=== PATIENT | female | born 1975 | race Caucasian/White ===

== ENCOUNTER 2017-02-05 15:01 | Emergency (ER) | payer MEDICAID ==
[~2017-02-05] VITALS: Ht 162.6 cm; Wt 139.8 kg
[~2017-02-05 15:01] MED LIST: LEVO125T5 PO; LITH150C PO; LITH300T3 PO; MELO15TA24 PO; MONOCYCLINE PO; MULT-516 PO; NORE-73 PO; PRAZ1CAP2 PO; PRAZ2CAP2 PO
[2017-02-05] MEDS ORDERED: SODIUM CHLORIDE FLUSH 10ML SYR IVF ONE (15:30)
[2017-02-05 15:44] LABS: HEMATOCRIT 44.4 % (34.6-47.8); HEMOGLOBIN 14.7 g/dL (11.7-16.4); WHITE BLOOD COUNT 8.4 x10^3/uL (3.4-10)
[2017-02-05 15:56] LABS: BLOOD UREA NITROGEN 15 mg/dL (7-18)
[2017-02-05 16:00] LABS: ASPARTATE AMINO TRANSFERASE 10 U/L (15-37)
[2017-02-05] MEDS ORDERED: HYDROcodone/APAP 10/325 MG TABLET ONE (16:14)
[2017-02-05 16:29] LABS: PATH.CAST-FLAG NOT PRESENT; SPERM-FLAG NOT PRESENT; SRC-FLAG NOT PRESENT; XTAL-FLAG NOT PRESENT; YLC-FLAG NOT PRESENT
[2017-02-05] MEDS ORDERED: HYDROcodone/APAP 10/325 MG TABLET PO ONE (16:30)
[2017-02-05 18:10] VITALS: BP 131/87
== END 2017-02-05 18:12 | disposition home or self-care (01) ==
LOC: ED 18:06
DX: S23.3XXA Sprain of ligaments of thoracic spine, initial encounter (principal); S20.219A Contusion of unspecified front wall of thorax, initial encounter; N30.90 Cystitis, unspecified without hematuria; I10 Essential (primary) hypertension; E03.9 Hypothyroidism, unspecified; Z90.49 Acquired absence of other specified parts of digestive tract; X58.XXXA Exposure to other specified factors, initial encounter; Y93.89 Activity, other specified; Y92.89 Other specified places as the place of occurrence of the external cause; Y99.8 Other external cause status
CPT/HCPCS: 36415; 71020; 71250; 72072; 80053; 81001; 83690; 84703; 85025; 87086; 93005; 99285

== ENCOUNTER 2017-03-15 14:05 | Emergency (ER) | payer MEDICAID ==
[~2017-03-15] VITALS: Ht 162.6 cm; Wt 140.5 kg
[2017-03-15] MEDS ORDERED: SODIUM CHLORIDE 0.9% 1,000ML IVBOLUS ONE (14:30)
[2017-03-15] MEDS ORDERED: SODIUM CHLORIDE FLUSH 10ML SYR IVF ONE (14:30)
[2017-03-15 14:42] LABS: HEMATOCRIT 46.7 % (34.6-47.8); HEMOGLOBIN 15.5 g/dL (11.7-16.4); WHITE BLOOD COUNT 9.2 x10^3/uL (3.4-10)
[2017-03-15 14:55] LABS: BLOOD UREA NITROGEN 16 mg/dL (7-18)
[2017-03-15] MEDS ORDERED: METOCLOPRAMIDE 5 MG/ML, 2ML IVPush ONE ×2 (16:00→17:00)
[2017-03-15] MEDS ORDERED: DIPHENHYDRAMINE 50 MG/ML, 1ML IVPush ONE ×2 (16:00→17:00)
[2017-03-15] MEDS ORDERED: METOCLOPRAMIDE 5 MG/ML, 2ML ONE (16:56)
[2017-03-15] MEDS ORDERED: DIPHENHYDRAMINE 50 MG/ML, 1ML ONE (16:56)
[2017-03-15 18:18] VITALS: BP 141/80
[2017-03-18] MEDS ORDERED: MAGNESIUM SULFATE PMX 2GM/50ML 50 ML IV ONE (21:30)
[2017-03-18] MEDS ORDERED: DEXAMETHASONE 4 MG/ML, 1ML IVPush ONE (21:30)
== END 2017-03-15 18:20 | disposition home or self-care (01) ==
LOC: ED 17:44
DX: R51 Headache (principal); Z90.49 Acquired absence of other specified parts of digestive tract; I10 Essential (primary) hypertension; E03.9 Hypothyroidism, unspecified
CPT/HCPCS: 36415; 70450; 80048; 82040; 84439; 84443; 84703; 85025; 96361; 96374; 96375; 99285; J1200; J2765; J7030

== ENCOUNTER 2017-03-18 17:53 | Observation (INO) | payer MEDICAID ==
[~2017-03-18] VITALS: Ht 160 cm; Wt 140.7 kg
[2017-03-18] MEDS ORDERED: PROCHLORPERAZINE 5 MG/ML, 2ML IVPush ONE (19:00)
[2017-03-18] MEDS ORDERED: SODIUM CHLORIDE 0.9% 1,000ML IVBOLUS ONE (19:00)
[2017-03-18] MEDS ORDERED: SODIUM CHLORIDE FLUSH 10ML SYR IVF ONE (19:00)
[2017-03-18] MEDS ORDERED: DIPHENHYDRAMINE 50 MG/ML, 1ML IVPush ONE (19:00)
[2017-03-18] MEDS ORDERED: KETOROLAC 30 MG/1 ML IVPush ONE (19:00)
[2017-03-18 19:04] LABS: HEMATOCRIT 44.2 % (34.6-47.8); HEMOGLOBIN 14.6 g/dL (11.7-16.4); WHITE BLOOD COUNT 9.4 x10^3/uL (3.4-10)
[2017-03-18 19:14] LABS: ASPARTATE AMINO TRANSFERASE 12 U/L (15-37); BLOOD UREA NITROGEN 11 mg/dL (7-18)
[2017-03-18] MEDS ORDERED: PROCHLORPERAZINE 5 MG/ML, 2ML ONE (19:28)
[2017-03-18] MEDS ORDERED: KETOROLAC 30 MG/1 ML ONE (19:28)
[2017-03-18] MEDS ORDERED: DIPHENHYDRAMINE 50 MG/ML, 1ML ONE (19:28)
[2017-03-18 20:28] LABS: PATH.CAST-FLAG NOT PRESENT; SPERM-FLAG NOT PRESENT; SRC-FLAG NOT PRESENT; XTAL-FLAG NOT PRESENT; YLC-FLAG NOT PRESENT
[2017-03-18] MEDS ORDERED: MAGNESIUM SULFATE PMX 2GM/50ML 50 ML IV ONE (22:00)
[2017-03-18] MEDS ORDERED: DEXAMETHASONE 4 MG/ML, 1ML IVPush ONE (22:00)
[2017-03-18] MEDS ORDERED: CEFTRIAXONE PMX 1GM/50ML 50 ML ONE (22:05)
[2017-03-18] MEDS ORDERED: SUMATRIPTAN 6MG/0.5ML SQ ONE ×2 (22:05→22:30)
[2017-03-18] MEDS ORDERED: DEXAMETHASONE 4 MG/ML, 1ML ONE (22:05)
[2017-03-18] MEDS: CEFTRIAXONE PMX 1GM/50ML 50 ML IV SCH (22:14)
[2017-03-18] MEDS ORDERED: ONDANSETRON 2MG/ML, 2ML IVPush PRN (22:30)
[2017-03-18] MEDS ORDERED: LABETALOL 5MG/ML, 20ML IVPush PRN (22:30)
[2017-03-18] MEDS ORDERED: hydrALAzine 20 MG/ML, 1ML IV PRN (22:30)
[2017-03-18] MEDS ORDERED: DOCUSATE 100 MG CAPSULE PO PRN (22:30)
[2017-03-18] MEDS ORDERED: morphine SULFATE 10 MG/ML, 1ML IVPush PRN (22:30)
[2017-03-18] MEDS ORDERED: ENALAPRILAT 1.25 MG/ML, 2ML IV PRN (22:30)
[2017-03-18] MEDS ORDERED: PRAZOSIN 2 MG CAPSULE PO SCH (22:30)
[2017-03-18] MEDS ORDERED: PRAZOSIN 1 MG CAPSULE PO SCH (22:30)
[2017-03-18] MEDS ORDERED: POLYETHYLENE GLYCOL 17 GM PACKET PO PRN (22:30)
[2017-03-18 23:30] VITALS: BP 136/78
[2017-03-19] MEDS: PRAZOSIN 5 MG CAPSULE PO SCH ×2 (00:26→19:55)
[2017-03-19] MEDS: ENOXAPARIN 40 MG/0.4 ML SQ SCH ×2 (00:26→19:21)
[2017-03-19] MEDS: POTASSIUM CHLORIDE 20 MEQ in SODIUM CHLORIDE 0.9% 1,000 ML IV SCH ×2 (01:42→14:28)
[2017-03-19 02:00] VITALS: BP 117/77
[2017-03-19] MEDS ORDERED: MELATONIN 5 MG TABLET PO PRN (02:30)
[2017-03-19] MEDS: MELATONIN MC SCH ×2 (03:00→11:00)
[2017-03-19] MEDS: HYDROcodone/APAP 5/325 TABLET PO PRN ×4 (04:35→19:54)
[2017-03-19 06:03] LABS: BLOOD UREA NITROGEN 9 mg/dL (7-18)
[2017-03-19 07:43] VITALS: BP 127/85
[2017-03-19] MEDS: LEVOTHYROXINE 125 MCG TABLET PO SCH (08:00)
[2017-03-19] MEDS: NORETH A ET ESTRA HOMEMEDPO SCH (09:00)
[2017-03-19] MEDS: FE FUMARATE HOMEMEDPO SCH (09:00)
[2017-03-19] MEDS ORDERED: DIPHENHYDRAMINE 50 MG/ML, 1ML IVPush ONE (10:00)
[2017-03-19] MEDS ORDERED: METOCLOPRAMIDE 5 MG/ML, 2ML IVPush ONE (10:00)
[2017-03-19] MEDS: KETOROLAC 30 MG/1 ML IVPush PRN ×2 (10:44→18:17)
[2017-03-19 13:55] VITALS: BP 121/81
[2017-03-19 20:00] VITALS: BP 123/86
[2017-03-19] MEDS: CEFTRIAXONE PMX 1GM/50ML 50 ML IV SCH (21:48)
[2017-03-19] MEDS: MELATONIN 5 MG TABLET PO PRN (21:48)
[2017-03-20] MEDS: HYDROcodone/APAP 5/325 TABLET PO PRN ×4 (00:34→19:00)
[2017-03-20 02:00] VITALS: BP 97/62
[2017-03-20] MEDS: POTASSIUM CHLORIDE 20 MEQ in SODIUM CHLORIDE 0.9% 1,000 ML IV SCH (03:30)
[2017-03-20 05:45] VITALS: BP 103/68
[2017-03-20] MEDS: LEVOTHYROXINE 125 MCG TABLET PO SCH (05:47)
[2017-03-20] MEDS: FE FUMARATE HOMEMEDPO SCH (09:00)
[2017-03-20] MEDS: NORETH A ET ESTRA HOMEMEDPO SCH (09:00)
[2017-03-20 09:04] VITALS: BP 110/71
[2017-03-20] MEDS: ACETAMINOPHEN 325 MG TABLET PO PRN (09:22)
[2017-03-20] MEDS ORDERED: METHOCARBAMOL 1,000 MG in DEXTROSE 5% 100 ML IV ONE (10:00)
[2017-03-20] MEDS ORDERED: LIDOCAINE 1%, 20ML ONE (12:23)
[2017-03-20 13:58] VITALS: BP 121/80
[2017-03-20 14:07] VITALS: BP 106/72
[2017-03-20 14:26] LABS: GLUCOSE, CSF 57 mg/dL (40-80)
[2017-03-20 18:04] LABS: RHEUMATOID FACTOR SCREEN NEGATIVE (NEGATIVE)
[2017-03-20] MEDS ORDERED: GADOBUTROL 10 MMOL/10 ML VIAL ONE (18:16)
[2017-03-20 20:22] VITALS: BP 116/78
[2017-03-20] MEDS: PRAZOSIN 5 MG CAPSULE PO SCH (20:42)
[2017-03-20] MEDS: ENOXAPARIN 40 MG/0.4 ML SQ SCH (20:42)
[2017-03-20] MEDS: CEFTRIAXONE PMX 1GM/50ML 50 ML IV SCH (20:43)
[2017-03-21] MEDS: HYDROcodone/APAP 5/325 TABLET PO PRN ×3 (00:25→12:22)
[2017-03-21] MEDS: MELATONIN 5 MG TABLET PO PRN (00:28)
[2017-03-21 02:24] VITALS: BP 110/75
[2017-03-21] MEDS: LEVOTHYROXINE 125 MCG TABLET PO SCH (06:36)
[2017-03-21 06:57] VITALS: BP 113/71
[2017-03-21] MEDS ORDERED: BACLOFEN 10 MG TABLET PO SCH (09:00)
[2017-03-21] MEDS: FE FUMARATE HOMEMEDPO SCH (09:00)
[2017-03-21] MEDS: NORETH A ET ESTRA HOMEMEDPO SCH (09:00)
[2017-03-21] MEDS: ACETAMINOPHEN 325 MG TABLET PO PRN (09:27)
[2017-03-21] MEDS ORDERED: ACET500C PO (11:46)
[2017-03-21] MEDS ORDERED: SUMA50TA3 PO (11:46)
[2017-03-21 12:48] VITALS: BP 113/72
[2017-03-22 13:52] LABS: ANA SCREEN NEGATIVE (Negative)
== END 2017-03-21 13:44 | disposition home or self-care (01) ==
LOC: ED 19:05 → EDIP 21:53 → SUATTDRO 21:55 → EDIP 22:15 → UNDOADMOB 22:15 → INTOOBSV 22:15 → EDIP 23:28 → 4EST 23:28 → DCLOUNGE 03-21 13:30
PROVIDERS: ADMIT Family Medicine; ATTEND Family Medicine
DX: R51 Headache (principal); F32.9 Major depressive disorder, single episode, unspecified; E03.9 Hypothyroidism, unspecified; E66.01 Morbid (severe) obesity due to excess calories; H53.2 Diplopia; I10 Essential (primary) hypertension; N39.0 Urinary tract infection, site not specified; Z68.43 Body mass index [BMI] 50.0-59.9, adult; Z85.41 Personal history of malignant neoplasm of cervix uteri; Z82.49 Family history of ischemic heart disease and other diseases of the circulatory system; Z87.891 Personal history of nicotine dependence; Z90.710 Acquired absence of both cervix and uterus
CPT/HCPCS: 36415; 62270; 70543; 70545; 70551; 70553; 80048; 80053; 81001; 82945; 83735; 84157; 84439; 84443; 85025; 85651; 86038; 86140; 86430; 87086; 89051; 96361; 96365; 96366; 96367; 96372; 96375; 96376; 97162; 97166; 99285; A9585; G0378; J0696; J0780; J1100; J1200; J1650; J1885; J2405; J2765; J2800; J3030; J3475; J3480; J7030; J3490

== ENCOUNTER → 2017-04-05 | Outpatient (CLI) | payer MEDICAID ==
[~2017-04-05] MED LIST changes: +ACET500C PO; +SUMA50TA3 PO
== END | disposition home or self-care (01) ==
LOC: CFH 11:09
PROVIDERS: ATTEND Family Medicine
DX: Z12.31 Encounter for screening mammogram for malignant neoplasm of breast (principal)
CPT/HCPCS: G0202

== ENCOUNTER 2017-11-17 11:41 | Emergency (ER) | payer MEDICAID ==
[~2017-11-17] VITALS: Ht 160 cm; Wt 120.4 kg
[2017-11-17 11:50] VITALS: BP 141/84
[2017-11-17] MEDS ORDERED: MELO15TA24 PO (12:42)
[2017-11-17] MEDS ORDERED: MINO100T2 PO (12:42)
[2017-11-17] MEDS ORDERED: TRAZ-136 PO (12:42)
[2017-11-17] MEDS ORDERED: TOPI25TA32 PO (12:42)
== END 2017-11-17 13:25 | disposition home or self-care (01) ==
LOC: ED 13:10
DX: S70.01XA Contusion of right hip, initial encounter (principal); G89.11 Acute pain due to trauma; I10 Essential (primary) hypertension; E03.9 Hypothyroidism, unspecified; E66.9 Obesity, unspecified; Z87.891 Personal history of nicotine dependence; W01.0XXA Fall on same level from slipping, tripping and stumbling without subsequent striking against object, initial encounter; Y93.89 Activity, other specified; Y92.69 Other specified industrial and construction area as the place of occurrence of the external cause; Y99.8 Other external cause status
CPT/HCPCS: 72110; 99284

== ENCOUNTER → 2017-11-19 | Outpatient (CLI) | payer MEDICAID ==
[~2017-11-19] MED LIST changes: +MINO100T2 PO; +TOPI25TA32 PO; +TRAZ-136 PO
== END | disposition home or self-care (01) ==
LOC: RAD 16:24
PROVIDERS: ATTEND Physician Assistant
DX: N83.201 Unspecified ovarian cyst, right side (principal); I10 Essential (primary) hypertension; Z87.891 Personal history of nicotine dependence

== ENCOUNTER 2018-10-21 00:12 | Emergency (ER) | payer MEDICAID ==
[~2018-10-21] VITALS: Ht 165.1 cm; Wt 117.7 kg
[~2018-10-21 00:12] MED LIST changes: -TRAZ-136 PO; +TRAZ50TA66 PO
--- NOTE | 2018-10-21 01:34 | NUR ---
pt to room from lobby
--- NOTE | 2018-10-21 01:47 | NUR ---
PT. TO ED TONIGHT WITH C/O SUDDEN ONSET SOB AND CP WHILE AT WORK TONIGHT. REPORTS WHEN ARRIVING HOME FROM WORK PT. WAS SOB AND C/O CP AND COREAS. PT. REPORTS HAD A SIMILAR EPISODE ABOUT 1 MONTH AGO BUT WAS NOT SEEN AT THAT TIME. DENIES ANY CARDIAC HX. EKG WAS DONE IN TRIAGE AND PRESENTED TO ERMD. NSR NOTED ON MONITOR. PT. AWAITNG PROVIDER EVAL. CONTINUOUS PULSE OX, B/P, AND HEART MONITORS IN PLACE. ALL SAFEYT MEASUERS OBERVED.
--- NOTE | 2018-10-21 02:38 | NUR ---
LAB AT BS.
[2018-10-21 03:04] LABS: ALANINE AMINOTRANSFERASE 13 U/L (12-78); ALBUMIN 3.6 g/dL (3.4-5.0); ANION GAP 9 mmol/L (5-15); CALCIUM 8.1 mg/dL (8.5-10.1); CHLORIDE 115 mmol/L (98-107); CREATININE 0.61 mg/dL (0.55-1.02)
[2018-10-21 03:09] LABS: ALKALINE PHOSPHATASE 49 U/L (45-117); FREE T4 (FREE THYROXINE) 0.87 ng/dL (0.76-1.46); TOTAL PROTEIN 6.6 g/dL (6.4-8.2); TROPONIN I < 0.015 ng/mL (0.000-0.045)
[2018-10-21 03:15] LABS: BILIRUBIN,TOTAL 0.5 mg/dL (0.2-1.0)
[2018-10-21 03:39] LABS: BASOPHILS # (AUTO) 0.09 x10^3/uL (0-0.1); BASOPHILS % (AUTO) 1 % (0-1); EOSINOPHILS % (AUTO) 1 % (1-7); LYMPHOCYTES # (AUTO) 3.09 x10^3/uL (1-3.4); LYMPHOCYTES % (AUTO) 36 % (22-44); MD SCAN; MEAN CORPUSCULAR HEMOGLOBIN 30.5 pg (27.0-34.8); MEAN CORPUSCULAR HGB CONC 32.9 g/dL (32.4-35.8); MEAN CORPUSCULAR VOLUME 92.7 fL (80-100); MEAN PLATELET VOLUME 7.5 fL (7.4-10.4); MONOCYTES # (AUTO) 0.84 x10^3/uL (0.2-0.8); MONOCYTES % (AUTO) 10 % (2-9); NEUTROPHILS # (AUTO) 4.45 x10^3/uL (1.8-6.8); NEUTROPHILS % (AUTO) 52 % (42-75); PLATELET COUNT 253 x10^3/uL (130-400); RED BLOOD COUNT 4.45 x10^6/uL (3.82-5.3); RED CELL DISTRIBUTION WIDTH 13.7 % (9.6-15.2)
--- NOTE | 2018-10-21 03:56 | NUR ---
PT. RESTING ON GURNEY WITH AT BS. NADN. SAFETY MEASURES OBSERVED.
--- NOTE | 2018-10-21 03:56 | NUR ---
CHART UP FOR RECHECK BY ERP.
[2018-10-21 04:27] VITALS: BP 108/50
== END 2018-10-21 04:30 | disposition home or self-care (01) ==
LOC: ED 04:20
DX: R07.89 Other chest pain (principal); R79.9 Abnormal finding of blood chemistry, unspecified; E03.9 Hypothyroidism, unspecified; I10 Essential (primary) hypertension
CPT/HCPCS: 36415; 71045; 80053; 84439; 84443; 84484; 85025; 93005; 99284

== ENCOUNTER 2019-03-26 17:35 | Emergency (ER) | payer MEDICAID ==
[~2019-03-26] VITALS: Ht 162.6 cm; Wt 117.3 kg
[~2019-03-26 17:35] MED LIST changes: -ACET500C PO; +ACET500C28 PO
[2019-03-26 17:37] VITALS: BP 131/85
[2019-03-26 18:20] LABS: RAPID INFLUENZA A Negative (Negative); RAPID INFLUENZA B POSITIVE (Negative)
== END 2019-03-26 19:05 | disposition home or self-care (01) ==
LOC: ED 18:45
DX: J10.1 Influenza due to other identified influenza virus with other respiratory manifestations (principal); I10 Essential (primary) hypertension; Z98.890 Other specified postprocedural states; Z90.49 Acquired absence of other specified parts of digestive tract
CPT/HCPCS: 71046; 87400; 93005; 99284

== ENCOUNTER 2020-07-16 09:38 | Emergency (ER) | payer MEDICAID ==
[~2020-07-16] VITALS: Ht 165.1 cm; Wt 117.7 kg
[2020-07-16 09:56] VITALS: BP 136/84
--- NOTE | 2020-07-16 10:06 | NUR ---
PT AMBULATORY TO ROOM 10 W/ C/O BILAT EAR PAIN AND SORE THROAT STARTED AROUND [id number] THIS AM. PT DENIES CONGESTION/FEVER/CHILLS/COUGH. PT DENIES ANY CLOSE CONTACTS W/ COVID-19 PERSONS. PT RESTING ON [employer].
[2020-07-16] MEDS ORDERED: DEXAMETHASONE 4 MG/ML, 1ML ONE (10:17)
[2020-07-16] MEDS ORDERED: DEXAMETHASONE 4 MG/ML, 1ML PO ONE (10:30)
--- NOTE | 2020-07-16 10:35 | NUR ---
PT CHART REVIEWED AND PLACED FOR RECHECK.
--- NOTE | 2020-07-16 10:39 | NUR ---
LUANNE VOGT AT BEDSIDE FOR RE-EVAL.
== END 2020-07-16 10:56 | disposition home or self-care (01) ==
LOC: ED 10:46
DX: J02.8 Acute pharyngitis due to other specified organisms (principal); B97.89 Other viral agents as the cause of diseases classified elsewhere; I10 Essential (primary) hypertension; E03.9 Hypothyroidism, unspecified; Z90.49 Acquired absence of other specified parts of digestive tract; Z87.891 Personal history of nicotine dependence
CPT/HCPCS: 87081; 87880; 99283; J1100